=== PATIENT | male | born 1980 | race African-American/Black ===

== ENCOUNTER 2022-11-14 18:28 | Emergency (ER) | payer BC, SELFPAY ==
[2022-11-14] MEDS ORDERED: Lidocaine 1% (PF) 30 ML VIAL ONE (19:10)
== END 2022-11-14 20:20 | disposition home or self-care (01) ==
LOC: MADERS 18:28
DX: S63.285A Dislocation of proximal interphalangeal joint of left ring finger, initial encounter (principal); F17.210 Nicotine dependence, cigarettes, uncomplicated; X58.XXXA Exposure to other specified factors, initial encounter
CPT/HCPCS: 26770; J2001